=== PATIENT | female | born 1990 | race Hispanic/Latino ===

== ENCOUNTER 2022-07-03 09:50 | Inpatient (IN) | payer MEDICAID, OTHER ==
[2022-07-02 10:19] LABS: Platelet Count 204 10x3/uL (150-450)
[2022-07-02 10:47] LABS: HBSAg Index 0.25 S/CO (0-0.99); Hep B Surf Ag Non-Reactive S/CO (NonReactive)
[2022-07-02 10:48] LABS: Syphilis Antibody Nonreactive (Nonreactive); Syphilis Antibody Index 0.08 S/CO (<1.00 Non-Reactive)
[2022-07-02 10:49] LABS: SARS-CoV-2 NAA Rapid Test DETECTED (NotDetected)
[2022-07-03] MEDS ORDERED: Famotidine/PF 20 mg/2ml Vial SLOW IVP PRN (10:07)
[2022-07-03] MEDS ORDERED: Bicitra 30 ML UDCUP PO PRN (10:07)
[2022-07-03] MEDS ORDERED: CEFAZOLIN 2 GM in Sodium Chloride 0.9% 100 ML IVPB SCH (10:15)
[2022-07-03 11:08] VITALS: BMI 24.3
[2022-07-03] MEDS ORDERED: CEFAZOLIN 2 GM VIAL ONE (11:17)
[2022-07-03] MEDS ORDERED: Morphine PF 10 MG/10 ML VIAL ONE (11:18)
[2022-07-03] MEDS ORDERED: Phenylephrine 40 MG/NS 250 ML 250 ML ONE (11:21)
[2022-07-03] MEDS ORDERED: Oxytocin 10 UNITS/ML VIAL ONE (11:21)
[2022-07-03] MEDS ORDERED: Dexamethasone 4 mg/ml Vial ONE (12:16)
[2022-07-03] MEDS ORDERED: Ondansetron PF 4 MG/2 ML Vial ONE (12:16)
[2022-07-03] MEDS ORDERED: Diphenoxylate HCl/Atropine Tablet PO PRN (13:06)
[2022-07-03] MEDS ORDERED: Misoprostol 200 MCG TAB PR PRN ×2 (13:06→15:35)
[2022-07-03] MEDS ORDERED: hydrALAZINE 20 MG/ML VIAL SLOW IVP PRN ×2 (13:06→15:35)
[2022-07-03] MEDS ORDERED: Promethazine HCl 25 MG/ML VIAL IM PRN ×3 (13:06→15:35)
[2022-07-03] MEDS ORDERED: Methylergonovine 0.2 MG/ML VIAL IM PRN ×2 (13:06→15:35)
[2022-07-03] MEDS ORDERED: Tranexamic Acid 1,000 MG in Sodium Chloride 0.9% 250 ML 250 ML IVPB PRN (13:06)
[2022-07-03] MEDS ORDERED: Acetaminophen 500 MG TAB PO PRN (13:06)
[2022-07-03] MEDS ORDERED: Ondansetron PF 4 MG/2 ML Vial IVP PRN ×3 (13:06→15:35)
[2022-07-03] MEDS ORDERED: Carboprost 250 MCG/ML AMP IM PRN (13:06)
[2022-07-03] MEDS ORDERED: NS w/ Oxytocin 30 units 500 ML IV SCH ×2 (13:15→15:35)
[2022-07-03] MEDS ORDERED: Lactated Ringer's 1,000 ML IV SCH (13:15)
[2022-07-03] MEDS ORDERED: Meperidine HCl/PF 25 MG/ML VIAL SLOW IVP PRN (13:45)
[2022-07-03] MEDS ORDERED: Fentanyl 100 MCG/2 ML VIAL SLOW IVP PRN (13:45)
[2022-07-03] MEDS ORDERED: Moisturizing Cream (Eucerin) 113 GM JAR TOP PRN (13:45)
[2022-07-03] MEDS ORDERED: Naloxone HCl 0.4 mg/ml Vial IV PRN (13:45)
[2022-07-03] MEDS ORDERED: Naloxone HCl 0.4 mg/ml Vial IVP PRN ×2 (13:45)
[2022-07-03] MEDS ORDERED: diphenhydrAMINE 50 MG/ML VIAL IVP PRN (13:45)
[2022-07-03] MEDS ORDERED: Communication Order-Pharmacy FS SCH (13:45)
[2022-07-03] MEDS ORDERED: Promethazine HCl 25 MG SUPP PR PRN (13:45)
[2022-07-03] MEDS ORDERED: Ketorolac Tromethamine 30 MG/ML VIAL IVP PRN (13:45)
[2022-07-03] MEDS ORDERED: Boostrix 0.5 ML (Tdap) VIAL (>/=7 yrs of age) IM ONE (15:35)
[2022-07-03] MEDS ORDERED: Acetaminophen 325 MG TAB PO PRN (15:35)
[2022-07-03] MEDS ORDERED: Bisacodyl 10 MG SUPP PR PRN (15:35)
[2022-07-03] MEDS ORDERED: Simethicone Chewable 80 MG TAB PO PRN (15:35)
[2022-07-03] MEDS: Lactated Ringer's 1,000 ML IV SCH (17:30)
[2022-07-03 20:30] LABS: Amphetamine Not Detected (NotDetected); Barbiturates Screen Not Detected (NotDetected); Benzodiazepine Screen Not Detected (NotDetected); Cocaine Metabolite Screen Not Detected (NotDetected); Methadone Not Detected (NotDetected); Methamphetamine Not Detected (NotDetected); Opiate Screen Not Detected (NotDetected); Oxycodone Screen Not Detected (NotDetected); Phencyclidine (PCP) Not Detected (NotDetected); THC/Cannabinoid Screen Not Detected (NotDetected); Tricyclic Screen Not Detected (NotDetected)
[2022-07-04] MEDS ORDERED: HYDROcodone/Acetaminophen 5/325 mg Tablet PO PRN ×2 (01:45)
[2022-07-04 05:34] LABS: Hemoglobin 10.7 g/dL (12.0-15.5); Mean Corpuscular HGB CONC 34.9 g/dL (32.0-36.0); Mean Corpuscular Hemoglobin 30.2 pg (27.0-33.0); Mean Corpuscular Volume 86.7 fl (81.6-98.3); Mean Platelet Volume 11.8 fl (7.4-10.4); Platelet Count 217 10x3/uL (150-450); RBC Distribution Width 12.5 % (11.5-14.5); Red Blood Cell (RBC) Count 3.54 10x6/uL (3.90-5.03); White Blood Cell (WBC) Count 18.1 10x3/uL (3.5-10.5)
[2022-07-04] MEDS: Lactated Ringer's 1,000 ML IV SCH ×3 (07:24→08:59)
[2022-07-04] MEDS: Docusate 100 MG CAP PO SCH ×3 (07:24→21:41)
[2022-07-04] MEDS: Prenatal Vitamin 1 TAB PO SCH (08:42)
[2022-07-04] MEDS: Ibuprofen 800 MG TAB PO SCH (21:41)
[2022-07-05] MEDS: Lactated Ringer's 1,000 ML IV SCH ×2 (00:02→08:20)
[2022-07-05 04:25] VITALS: BP 105/55; TEMP 98.1
[2022-07-05] MEDS: Ibuprofen 800 MG TAB PO SCH (05:55)
[2022-07-05] MEDS: Prenatal Vitamin 1 TAB PO SCH (08:13)
[2022-07-05] MEDS: Docusate 100 MG CAP PO SCH (08:13)
== END 2022-07-05 11:20 | disposition home or self-care (01) | DRG 786 ==
LOC: CSHLD 09:50 → CSHANTE 16:05
PROVIDERS: ADMIT Family Medicine; ATTEND Family Medicine
PROC: 10D00Z1 Extraction of Products of Conception, Low, Open Approach (ICD-10-PCS; principal; 2022-07-03)
PROC: 8E0ZXY6 Isolation (ICD-10-PCS; 2022-07-03)
DX: O34.211 Maternal care for low transverse scar from previous cesarean delivery (principal); U07.1 COVID-19; O98.52 Other viral diseases complicating childbirth; O36.63X0 Maternal care for excessive fetal growth, third trimester, not applicable or unspecified; O99.824 Streptococcus B carrier state complicating childbirth; O24.425 Gestational diabetes mellitus in childbirth, controlled by oral hypoglycemic drugs; Z3A.39 39 weeks gestation of pregnancy; Z37.0 Single live birth; O90.81 Anemia of the puerperium; D64.9 Anemia, unspecified; Z79.84 Long term (current) use of oral hypoglycemic drugs
CPT/HCPCS: 36415; 36416; 51702; 80306; 85014; 85018; 85027; 85049; 86780; 86850; 86900; 86901; 87340; J1100; J2274; J2405; J2590; J7120; U0002